=== PATIENT | male | born 1960 | race African-American/Black ===

== ENCOUNTER 2017-01-26 14:55 | Emergency (ER) | payer MEDICAID, OTHER ==
[~2017-01-26] VITALS: Ht 177.8 cm; Wt 98.0 kg
[2017-01-26] MEDS ORDERED: HYDR-519 PO (16:05)
[2017-01-26] MEDS ORDERED: ALLO100T PO (16:05)
[2017-01-26] MEDS ORDERED: BACITRACIN ZINC OINT UDPKT TOP ONE (20:30)
[2017-01-26] MEDS ORDERED: KETOROLAC 60MG/2ML VIAL IM ONE (20:30)
[2017-01-26] MEDS ORDERED: LIDOCAINE HCL 1% 20ML VIAL (Pyxis) INJ MC ONE (20:30)
[2017-01-26 21:55] VITALS: BP 130/80
== END 2017-01-26 21:55 | disposition home or self-care (01) ==
LOC: ER 20:46
DX: L02.31 Cutaneous abscess of buttock (principal); M10.9 Gout, unspecified; Z79.899 Other long term (current) drug therapy; Z90.5 Acquired absence of kidney
CPT/HCPCS: 10060; 96372; 99283; J1885; J3490

== ENCOUNTER 2017-01-29 07:09 | Emergency (ER) | payer OTHER ==
[~2017-01-29] VITALS: Ht 177.8 cm; Wt 98.0 kg
[~2017-01-29 07:09] MED LIST: ALLO100T PO; HYDR-519 PO
[2017-01-29 07:15] VITALS: BP 155/96
== END 2017-01-29 11:37 | disposition home or self-care (01) ==
LOC: ER 10:59
DX: Z04.8 Encounter for examination and observation for other specified reasons (principal); M10.9 Gout, unspecified; Z98.890 Other specified postprocedural states
CPT/HCPCS: 99282; Z7610

== ENCOUNTER 2017-08-22 18:24 | Emergency (ER) | payer MEDICAID, OTHER ==
[~2017-08-22] VITALS: Ht 177.8 cm; Wt 100.0 kg
[2017-08-22] MEDS ORDERED: MORPHINE SULFATE 10 MG/ML CPJ IM ONE (19:30)
[2017-08-22] MEDS ORDERED: SODIUM CHLORIDE 0.9% 1,000 ML IV ONE (19:30)
[2017-08-22] MEDS ORDERED: ONDANSETRON 4MG ODT PO ONE (19:30)
[2017-08-22] MEDS ORDERED: CEFAZOLIN 1000MG PREMIX 50 ML IV ONE (19:30)
[2017-08-22] MEDS ORDERED: TETANUS, DIPHTHERIA, PERTUSSIS VAC/PF 0.5ML (>7YR OLD) IM ONE (19:30)
[2017-08-22 19:49] LABS: BASOPHILS % 1.2 % (0.0-2.0); EOSINOPHILS % 1.3 % (0.0-5.0); HEMATOCRIT. 44.5 % (42.0-52.0); HEMOGLOBIN. 14.9 g/dL (14.0-18.0); LYMPHOCYTES % 23.5 % (20.0-50.0); MEAN CORPUSCULAR HEMOGLOBIN 28.6 pg (28.0-32.0); MEAN CORPUSCULAR VOLUME 85.6 fL (80.0-94.0); MEAN PLATELET VOLUME 8.9 fl (7.4-10.4); MONOCYTES % 8.6 % (2.0-8.0); NEUTROPHILS % 65.4 % (40.0-76.0); PLATELET 218 x1000/uL (130-400); RED CELL DISTRIBUTION WIDTH 15.8 % (11.6-14.6)
[2017-08-22 19:52] LABS: CHLORIDE 106 mEq/L (98-107)
[2017-08-22 20:01] LABS: CARBON DIOXIDE 28 mEq/L (21-32)
[2017-08-22] MEDS ORDERED: MORPHINE SULFATE 4 MG/ML CPJ (NOT FOR IM USE) IV ONE (22:00)
[2017-08-22] MEDS ORDERED: MORPHINE SULFATE 2 MG/ML CPJ (NOT FOR IM USE) IV ONE (22:10)
[2017-08-22 22:11] LABS: CLARITY URINE CLEAR (CLEAR); COLOR URINE YELLOW (YELLOW); KETONES URINE NEGATIVE (NEGATIVE); LEUKOCYTE ESTERASE URINE NEGATIVE (NEGATIVE); NITRITE URINE NEGATIVE (NEGATIVE); OCCULT BLOOD URINE NEGATIVE (NEGATIVE); PROTEIN URINE NEGATIVE (NEGATIVE); SPECIFIC GRAVITY URINE 1.024 (1.005-1.030); UROBILINOGEN URINE 0.2 E.U./dL (0.2-1.0)
[2017-08-22 22:24] VITALS: BP 155/92
== END 2017-08-22 22:38 | disposition short-term general hospital (02) ==
LOC: ER 19:58
DX: S66.922A Laceration of unspecified muscle, fascia and tendon at wrist and hand level, left hand, initial encounter (principal); S61.412A Laceration without foreign body of left hand, initial encounter; M10.9 Gout, unspecified; X99.1XXA Assault by knife, initial encounter; Y93.89 Activity, other specified; Y92.488 Other paved roadways as the place of occurrence of the external cause
CPT/HCPCS: 36415; 73110; 73130; 80053; 81003; 85025; 90471; 90715; 96365; 96372; 96375; 99285; J0690; J2270; J7030; Q0162; Z7610